=== PATIENT | female | born 1955 | race Caucasian/White ===

== ENCOUNTER 2016-07-20 09:40 | Day surgery (SDC) | payer OTHER ==
[~2016-07-20] VITALS: Ht 162.6 cm; Wt 83.3 kg
[2016-07-20 10:31] VITALS: Ht 162.6 cm; Wt 83.3 kg
[2016-07-20] MEDS ORDERED: OMEP40CA6 PO (10:47)
[2016-07-20] MEDS ORDERED: [UNRECOGNIZED DRUG - OTHER] (10:47)
[2016-07-20 12:10] VITALS: BP 129/58; PULSE 54; RESP 20
[2016-07-20] MEDS ORDERED: MIDAZOLAM 1 MG/ML 2 ML INJ ONE ×2 (13:26)
[2016-07-20] MEDS ORDERED: FENTAnyl 50 MCG/ML VIAL ONE (13:26)
[2016-07-20 13:33] VITALS: BP 113/55; RESP 20
--- NOTE | 2016-07-20 14:31 | GILP ---
DATE OF PROCEDURE: 07/20/2016 PREOPERATIVE DIAGNOSIS: Gastroesophageal reflux symptoms. PROCEDURE DONE: Esophagogastroduodenoscopy and biopsy. 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 DESCRIPTION OF PROCEDURE: The patient was put in left lateral decubitus after obtaining informed co nsent, she was sedated with 3 mg IV Versed and 75 mcg of fentanyl, monitored oximetry, EKG, blood pr essure. Very carefully advanced an Olympus video upper endoscope into the esophagus, stomach and duodenum up to the second part. The duodenum is normal. The stomach including by retroflexion hiatus hernia w as noted. Body and antrum and pylorus normal, and then the scope was withdrawn back into the GE doroteo ction which is about 35 to 36 cm. There are changes of short segment Keith's like membrane with mi ld esophagitis. This was photographed and biopsies were done. Mild bleeding occurred, so further b iopsies was stopped after 2 biopsies. Then the scope was withdrawn. Patient had no complication. PLAN: Plan will be to await for biopsy report. Continue PPI. Recommend a consultation for possibl e hiatus hernia repair, prior to that an esophageal motility and 24-hour pH monitoring may have to b e done, if necessary Barrax procedure will be done on this patient. Dictated By: TED ZALDIVAR Conf#: [id number] DID#: [id number] CC: ; TED ROCKWELL M.D.;*EndCC*
== END 2016-07-20 14:44 | disposition home or self-care (01) ==
LOC: GIL 09:40
PROVIDERS: ATTEND Internal Medicine
DX: K21.9 Gastro-esophageal reflux disease without esophagitis (principal); K44.9 Diaphragmatic hernia without obstruction or gangrene; K20.9 Esophagitis, unspecified; E78.5 Hyperlipidemia, unspecified
CPT/HCPCS: 43239; 88305; 88312; 88313; J2250; J3010; Z7610